=== PATIENT | male | born 1950 | race Caucasian/White ===

== ENCOUNTER 2023-11-29 01:06 | Day surgery (SDC) | payer MEDICARE, SELFPAY ==
[2023-11-19 10:08] VITALS: BMI 32.2
[2023-11-29 08:46] VITALS: BP 131/81; PULSE 73; RESP 20; TEMP 36.4; O2SAT 98; BMI 32.3
[2023-11-29] MEDS: LACTATED RINGERS 1,000 ML 150 ML IV CONT (08:50)
--- NOTE | 2023-11-29 09:22 | WPDANESEPPF ---
Anes - Initial Pre Proc Eval Procedure: Operation Date: 11/29/23 09:30 Proposed Procedures p Screening Colonoscopy - Rudy Love MD Date/Time: 11/29/23 09:22 Surgeon: Rudy Love MD Pre Op Diagnosis: neoplasm screening Patient Data Age: 73 Gender: M Height: 1.88 m Weight: 114.1 kg Last Vital Signs Temp 36.4 C 11/29/23 08:46 Pulse 73 11/29/23 08:46 Resp 20 11/29/23 08:46 BP 131/81 11/29/23 08:46 Pulse Ox 98 11/29/23 08:46 O2 Del Method Room Air 11/29/23 08:46 Allergies Allergy/AdvReac Type Severity Reaction Status Date / Time codeine Allergy Unknown Gastrointestinal Verified 11/29/23 08:45 Upset Penicillins Allergy Unknown Unknown Verified 11/29/23 08:45 Home Medications Medication Instructions Recorded Confirmed Type omega 4-gug-mkc-fish oil 60 mg-90 1 cap PO DAILY 08/25/20 11/29/23 History mg-500 mg capsule (Fish Oil) lisinopril 10 mg tablet 10 mg PO DAILY #90 tabs 05/09/23 11/29/23 Rx simvastatin 40 mg tablet 40 mg PO DAILY #90 tabs 05/09/23 11/29/23 Rx Patient hx anesthesia problems: none Family hx anesthesia problems: none Results Review: All pre-operative results and documents have been reviewed as part of the pre-operative evaluation. REPLACED BY [facility] Past Medical History Medical History Benign essential hypertension Chronic pain of left knee Colon cancer screening History of prostate cancer Other and unspecified hyperlipidemia Rosacea Surgical History Surgical History H/O prostatectomy H/O repair of rotator cuff Family History Family History Mother Family history of diabetes mellitus in first degree relative Grandparent Diabetes mellitus Father Family history of heart disease in male family member before age 55 Social History Social History Smoking packs per day: 1 Smoking cigarettes per day: 20.0 Years smoked: 5 Smoking pack-years: 5.00 Smoking status: Former smoker Tobacco type: cigarettes Second hand tobacco smoke exposure: Yes Smoking end date: 02/05/74 Alcohol intake: current Drinks per week: 7 Alcohol use details: occasionally Substance use: never Substance use type: does not use Living arrangements: with family Spiritual care concerns: No Anes - Eval Final PreProcedure Day of Procedure 11/29/23 09:22 Patient weight: obese Heart: regular rate and rhythm Lungs: clear to auscultation Airway: Mallampati scale class II Neurological: alert and oriented Last oral intake: >/= 8 hours ASA classification: III Emergent: no Anesthetic plan: proceed Anesthesia type and monitoring: general GIVS and standard monitoring Results Review: All pre-operative results and documents have been reviewed as part of the pre-operative evaluation. Informed Consent: The patient's anesthetic plan and its attendant risks and benefits were discussed with the patient/family/POA. Questions were solicited and answers provided to the satisfaction of the patient/family/POA.
--- NOTE | 2023-11-29 10:21 | PM.IMHP ---
H&P: HPI History of Present Illness Date/Time: 11/29/23 10:21 Chief Complaint: Screening colonoscopy Narrative: This is the patient's first colonoscopy. There are no GI symptoms and there is no family history of colorectal cancer. [facility] Past Medical History Medical History Benign essential hypertension Chronic pain of left knee Colon cancer screening History of prostate cancer Other and unspecified hyperlipidemia Rosacea Surgical History Surgical History H/O prostatectomy H/O repair of rotator cuff Family History Family History Mother Family history of diabetes mellitus in first degree relative Grandparent Diabetes mellitus Father Family history of heart disease in male family member before age 55 Social History Social History Smoking packs per day: 1 Smoking cigarettes per day: 20.0 Years smoked: 5 Smoking pack-years: 5.00 Smoking status: Former smoker Tobacco type: cigarettes Second hand tobacco smoke exposure: Yes Smoking end date: 02/05/74 Alcohol intake: current Drinks per week: 7 Alcohol use details: occasionally Substance use: never Substance use type: does not use Living arrangements: with family Spiritual care concerns: No Meds Home Medications and Allergies Home Medications Medication Instructions Recorded Confirmed Type omega 5-cgf-stu-fish oil 60 mg-90 1 cap PO DAILY 08/25/20 11/29/23 History mg-500 mg capsule (Fish Oil) lisinopril 10 mg tablet 10 mg PO DAILY #90 tabs 05/09/23 11/29/23 Rx simvastatin 40 mg tablet 40 mg PO DAILY #90 tabs 05/09/23 11/29/23 Rx Allergies Allergy/AdvReac Type Severity Reaction Status Date / Time codeine Allergy Unknown Gastrointestinal Verified 11/29/23 08:45 Upset Penicillins Allergy Unknown Unknown Verified 11/29/23 08:45 Vital Signs Vital Signs - 24 hr 11/29/23 08:46 Temperature 97.6 F Pulse Rate 73 Respiratory Rate 20 Blood Pressure 131/81 Pulse Oximetry 98 Oxygen Delivery Room Air Assessment and Plan Assessment and plan (1) Encounter for screening colonoscopy: Code(s): Z12.11 - Encounter for screening for malignant neoplasm of colon Status: Acute Assessment and Plan: The patient is deemed a good candidate for the procedure. Consent signed. Will proceed.
[2023-11-29 10:46] VITALS: BP 111/65; PULSE 56; RESP 13; O2SAT 96
[2023-11-29 10:56] VITALS: BP 108/68; PULSE 54; RESP 12; O2SAT 97
[2023-11-29 11:06] VITALS: BP 128/80; PULSE 68; RESP 20; O2SAT 97
== END 2023-11-29 11:19 | disposition home or self-care (01) ==
PROVIDERS: PCP Nurse Practitioner; Visit Provider Internal Medicine Gastroenterology
PROC: 0DJD8ZZ Inspection of Lower Intestinal Tract, Via Natural or Artificial Opening Endoscopic (ICD-10-PCS; CPT 45378; principal; 2023-11-29 09:30)
DX: Z12.11 Encounter for screening for malignant neoplasm of colon (principal); K57.30 Diverticulosis of large intestine without perforation or abscess without bleeding; E78.49 Other hyperlipidemia; I10 Essential (primary) hypertension; Z85.46 Personal history of malignant neoplasm of prostate; Z87.891 Personal history of nicotine dependence; E66.9 Obesity, unspecified; Z68.32 Body mass index [BMI] 32.0-32.9, adult
CPT/HCPCS: G0121; J1596; J2003; J2704; J7120

== ENCOUNTER 2024-07-10 07:39 | Outpatient (CLI) | payer MEDICARE, SELFPAY ==
--- NOTE | ~2024-07-10 | PE_ITS ---
EXAMINATION: PET_PETPSMAST_PT DATE: 07/10/2024 09:54 INDICATION: Prostate cancer TECHNIQUE: 4.894 mCi of Illucix Ga-68(73-Gh-zdnktdkklx) was administered i.v. Low dose computed moises graphy (CT) images were acquired from the base of the brain to the base of the brain to the proximal thighs for attenuation correction and anatomic localization. Positron emission tomography (PET) image s were acquired in the same distribution beginning 81 minutes after injection. Images including fused PET/CT images were reconstructed in axial, coronal, and sagittal planes. Automated exposure control technique was employed. The dose-length product was 1317.13mGy-cm. COMPARISON: CT abdomen pelvis dated 09/25/2013 FINDINGS: Head/neck: Typical pattern of symmetric physiologic increased activity in the lacrimal, parotid and submandibula r glands as well as along the mucosa of the nasal and oral cavities, pharynx and hypopharynx. No path ologically enlarged cervical lymphadenopathy or suspicious foci of increased uptake in the visualized head or neck. Chest: Mild emphysema. Calcified nodule at the basilar left lower lobe consistent with old granulomatous dis ease. Mild bibasilar atelectasis. Heart size normal. Atherosclerotic coronary artery calcific lesion. Thoracic aorta is normal in caliber. No pathologically enlarged or PSMA avid thoracic lymphadenopath y. Abdomen/pelvis/proximal thighs: Physiologic renal accumulation and excretion of activity in the kidneys, bladder and along portions o f ureters. Status post prostatectomy with no evident nodular soft tissue density at the prostatectomy bed or abnormal pacemaker activity to suggest locally recurrent disease. Assessment of activity at t he prostatectomy bed is however significantly limited by the large amount of contents excreted activi ty within the bladder. Photopenic defect associated with a 7.3 x 3.5 cm exophytic cyst at the postero lateral right kidney which is increased in size since the prior study. There is a second indeterminat e 12 mm exophytic lesion at the lateral right kidney which demonstrates higher soft tissue density wh ich is new since the prior study. Normal degree and slightly heterogenous pattern of increased uptake throughout the liver and spleen without radiologic correlate or dominant PSMA avid lesion. Calcified gallstone at the neck of the normal-appearing nondilated gallbladder. The pancreas and bilateral adr enal glands are normal. Moderate uptake scattered throughout the bowels with typical duodenal and pro ximal jejunal predominance and without radiologic correlate, also likely physiologic. Moderate divert iculosis with descending and sigmoid colon predominance without surrounding from pursuing to suggest diverticulitis. Small fat-containing left inguinal hernia. No other abnormal foci of increased uptake or pathologically enlarged lymphadenopathy in the abdomen, pelvis or proximal thighs. Musculoskeletal: Severe cervical and lumbar spondylosis. Chronic sclerotic bone island at L3 which is unchanged since 2014 and without No no other suspicious lytic, blastic or abnormally PSMA avid bone lesions. IMPRESSION: 1. No abnormal PSMA avid lesions to suggest locally recurrent or metastatic disease. 2. Indeterminate 12 mm exophytic soft tissue density right renal lesion which is new since the prior study. This statistically most likely to represent a proteinaceous/hemorrhagic cyst although solid re nal cell carcinoma could not be excluded and would recommend further evaluation with pre and postcont rast CT. 3. Cholelithiasis. 4. Small fat-containing left inguinal hernia. Reviewed, dictated and finalized at location A. IMPRESSION: 1. No abnormal PSMA avid lesions to suggest locally recurrent or metastatic dis ease. 2. Indeterminate 12 mm exophytic soft tissue density right renal lesion which i s new since the prior study. This statistically most likely to represent a prot einaceous/hemorrhagic cyst although solid renal cell carcinoma could not be exc luded and would recommend further evaluation with pre and postcontrast CT. 3. Cholelithiasis. 4. Small fat-containing left inguinal hernia.
--- OUTSIDE RECORDS SUMMARY | 2024-07-10 07:41 | XMS_ITS | Clinical Summary ---
Author Organization [facility] Address [address] [place] [address] Care Team Providers Care Insurance Verification Representative Name Role Phone Unavailable Primary Care Provider Unavailabl e Source Comments [facility],non-owned Affiliates and Associated Physician Practices is amultiple site organization consisting of ambulatory clinics and hospital sitesin [place], [place], [place] and [place]. This disclosure is being madepursuant to the Care Everywhere program and may not contain all information available regarding this patient. Last updated 17.[facility] iLike Allergies Active Allergy Reactions Criticality Noted Date Comments Penicillins Unknown 10/30/2018 Immunizations Immunization Administration Dates Next Due INFLUENZA VACCINE, HIGH-DOSE , QUADR. (FLUZONE HIGH-DOSE QUADRIVALENT; 65Y+), 0.7 ML (HD-IIV4) 10/31/2019,10/30/2018 Social History Tobacco Use Types Packs/Day Years Used Date Smoking Tobacco: Never Assessed Sex and Gender Information Value Date Recorded Sex Assigned at Not on file Legal Sex Male 2:48 PM CDT Gender Identity Not on file Sexual Orientation Not on file Plan of Treatment Health Maintenance Due Date Last Done Comments COLOGUARD (AGES 45-75) - COL ON CA SCREENING 1949 COLON MONITORING 1949 COLONOSCOPY - COLON CA SCREENING 1949 CT COLONOGRAPHY - COLON CA SCREENING 1949 Colorectal Cancer Screening 1949 FIT - COLON CA SCREENING 1949 FLEX SIG - COLON CA SCREENING 1949 LIPID TESTING 1949 HEPATITIS C SCREENING 07/13/1967 DTAP/TDAP/TD VACCINES (1 - Tdap) 1968 PNEUMOCOCCAL VACCINE 50+ (1 of 1 - PCV) 07/18/1999 ZOSTER VACCINE (1 of 2) 07/18/1999 COVID-19 VACCINE (2023-2 5 season) 2023 DEPRESSION SCREENING 02/06/2024 Respiratory Syncytial Virus (RSV) Vaccine Pt: or over 60 yrs (1 - 1-dose 75+ series) 2024 INFLUENZA VACCINE (Season Ended) 2024 10/31/2019, 10/30/2018 HEPATITIS B VACCINE Aged Out No longe r eligible based on patient's age to complete this topic HIB VACCINE Aged Out No longer eligi ble based on patient's age to complete this topic HPV VACCINE Aged Out No longer eligi ble based on patient's age to complete this topic MENINGOCOCCAL (Group B) VACCINE SHARED DECISION-MAKING Aged Out No longer eligible based on patient's age to complete this topic MENINGOCOCCAL GROUPS A/C/Y/W VACCINE Aged Out No longer eligible b ased on patient's age to complete this topic Insurance MEDICARE [employer]
--- OUTSIDE RECORDS SUMMARY | 2024-07-10 07:42 | XMS_ITS | Data Portability ---
Author Organization [place] [facility] Main Office Address [address] [place] [address] Care Team Providers Care Institution Librarian Name Role Phone LEO JOSELITO Primary Care Provider LEO JOSELITO Referring Provider [phone] Assessment Encounter Date Assessment Date Assessment LastModified by Organization Details LastModified Time 04/28/2022 04/28/2022 HPI: 71-year-old male came in today for cortisone injection into his right shoulder. I saw him last year in September. He has complete superior migration of the humeral head on the acromion. He was doing well up until he was helping his son-in-law remodel home. He is doing lot of overhead activities and the shoulders bother him quite a bit. He will utilize lrnb-llr-zolxxh r ibuprofen but this is not helping right now. He came in today wanting and cortisone injection. He has not had 1 in the past. Physical exam: 71-year-old male very alert. He has no effusion in the right shoulder. He has active elevation to 145 external rotation 80 internal rotation is to L1. He has moderate weakness with external rotation as well as abduction. ChloraPrep was used on skin 20 mg Kenalog and 3 cc of 0.5% ropivacaine was injected into the right subacromial space. Risk infection discussed. 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 I discussed with him that he can repeat cortisone injection as often as every 3 months. Talked about utilizing the ibuprofen on a more regular basis especially when he is being active with the shoulder and he is going to experiment with that a bit. I will see him back as needed. 20 minutes was spent to treatment the patient with more than half of this [id number] conversation hannah Not available 04/28/2022 11:05:02 Plan of Treatment Reminders Order Date Submit Date Provider Last Modified By Organization Details Last Modified Time Details Appointments None recorded. Lab None recorded. Referral None recorded. Procedures injection/a spiration joint/bursa (PROC) - in office procedure, administere d by provider 2022 023 In-Office Order, Internal Use Only DO Not Attach Compendium DO Not Attach Compendium, Do Not Delete/merge, [id number] 3 09:58:02 Surgeries None recorded. Imaging None recorded. Medication Orders Kenalog 10 mg/mL suspension for injection 2022 [address] [id number], [address], [place], [place], [phone], 3 13:34:52 ropivacaine (PF) 5 mg/mL (0.5 %) injection solution 2022 023 [id number], [address], [place], [place], [phone], 3 13:34:52 Patient TargetsNo targets recorded. Patient InstructionsNo instructions recorded. Reason for Referral None Reported. Results Created Date Observation Date Name Description Value Unit Range Abnormal Flag Note LastModifiedBy Organization Detail LastModifiedTime 09/27/19 22 XR, shoul jennifer No observ ation record ed. [id number] [place] [address], [place], [address], 04/05/2022 13:33:27 Result Notes None recorded. Problems Name Problem SNOMED Code Status Onset Date Resolution Date Notes Provider Name and Address Organization Details Recorded Time Pain of right shoulder joint 8880303902616 9100 Active 2021 Not Available [facility] 3 13:31:00 Osteoarthr itis 133102773 Active Not Available [facility] 3 13:31:00 Pain in limb 25381914 Active Not Available [facility] 3 13:31:00 Pain of left shoulder joint 4171571161145 9109 Active 2022 GABI Aguilar, [place] [facility] 09:56:04 Problem Notes None recorded. Procedures Surgical History Date Name Laterality Status Provider Name and Address Organization Details Recorded Time procedure on appendix completed Not Available [facility] 04/05/2022 13:30:05 prostatectomy completed Not Available [facility] 04/05/2022 13:30:05 extraction of cataract completed Not Available [facility] 04/05/2022 13:30:05 Imaging Results None recorded. Procedure Notes None recorded. Medical Equipment None Reported. Allergies Allergen ID Allergen Name Allergen Category Reaction Reaction Severity Criticality Documentation Date Start Date Code Code System Note Provider Name and Address Organization Details Recorded Time 66013 Product containin g penicilli n (product) medicatio n Not available Not available Not available 04/05/2022 27816 8001 SNOMED Not Available [facility] 3 13:33:25 79246 codeine medicatio n Not available Not available Not available 04/05/2022 2670 RxNorm Not Available [facility] 3 13:33:25 Medications Name Sig Start Date Stop Date Status Note LastModified by Organization Details LastModified Time simvastatin 80 mg tablet 09/21 completed Not Available Not Available Not Available simvastatin 40 mg tablet TAKE 1 TABLET BY MOUTH DAILY active Not Available Not Available No t Available Kenalog 10 mg/mL suspension for injection in office 2022 active ND: 0003- 0494- 20 Not Available Not Available Not Available lisinopril 10 mg tablet TAKE 1 TABLET BY MOUTH DAILY active Not Available Not Available No t Available metronidazo le 0.75 % topical gel APPLY TOPICALLY TO FACE IN THE MORNING AND IN THE EVENING active Not Available Not Available No t Available tadalafil 20 mg tablet 09/21 completed Not Available Not Available Not Available diclofenac 1 % topical gel 09/21 completed Not Available Not Available Not Available ropivacaine (PF) 5 mg/mL (0.5 %) injection solution in office 2022 active [facility] 09523 -064- 01 Not Available Not Available Not Available Fluzone High-Dose 2461-2245 (PF) 180 mcg/0.5 mL intramuscul ar syringe 09/21 completed Not Available Not Available Not Available Vitals Date Recorded Body height Provider Name an d Address Organization Details Last Updated DateTime 04/28/2022 180.34 cm GABI Aguilar [facility] 04/28/2022 09:54:58 Date Recorded Body mass index (BMI) Body height Body weight Provider Name and Address Organization Details Last Updated DateTime 09/26/2021 35.4 kg/m2 180.34 cm 659976.46 g Not Available [facility] 04/05/2022 13:30:40 Social History None recorded. Functional Status Question Answer Note LastModified by Organizat ion Details LastModified Time What is your level of alcohol consumption? Moderate [id number] Information not available 04/05/2022 Mental Status None recorded. Family History Relationship Description Onset Age of this Age Resolved Age Notes LastModified by Organization Details LastModified Time Mother Diabetes mellitus [id number] Not available 04/05/2022 13:30:06 Medical History Condition Response BLINDNESS N KIDNEY STONES N MRSA N CARPAL TUNNEL SYNDROME N LUNG DISEASE/DISORDER N HISTORY OF DRUG ABUSE N RADIATION / CHEMOTHERAPY N COPD N SPORTS INJURY N ANKLE PAIN N BLOOD DISEASES N SCHIZOPHRENIA N SHINGLES N SHOULDER PAIN N DEPRESSION (INCLUDING POST ) N BOWEL PROBLEMS N STROKE/TIA N ULCERS N KNEE PAIN N BENIGN PROSTATIC HYPERPLASIA N OBESITY N GERD/NAUSEA N ANEURYSM N URINARY/BLADDER/KIDNEY PROBLEMS N CORONARY ARTERY DISEASE (CAD) N ADDICTION CONCERNS N USE OF BLOOD THINNERS N SKIN PROBLEMS N EMPHYSEMA N MUSCLE,JOINT OR BONE PROBLEMS N DVT N STOMACH ULCERS N BLOOD CLOTS N USE OF NSAIDS N CONCUSSION OR SPINAL TRAUMA N NEUROPATHY N AIDS/HIV N FRACTURES N HYPERTENSION N ELBOW PAIN N TOURETTE'S N Metal allergy N ANXIETY DISORDER N BLOOD TRANSFUSION N ANEMIA/BLOOD DISORDER N BIPOLAR DISORDER N BRONCHITIS N OSTEOARTHRITIS N TUBERCULOSIS N FOOT PROBLEM N HEART VALVE DISORDERS N SOFT TISSUE INJURY N ALLERGIES/HAYFEVER N INFECTIOUS DISEASE N HEART ARRHYTHMIA N INSOMNIA N RHEUMATOID ARTHRITIS N HIGH CHOLESTEROL / HYPERLIPIDEMIA N EDEMA N CHRONIC PAIN SYNDROME N CAROTID BLOCKAGE N BACK / NECK PROBLEMS N HAVE YOU BEEN HOSPITALIZED OR SEEN IN [facility] IN THE PAST YEAR ? N BURSITIS N HERNIATED DISC N DIALYSIS N FIBROMYALGIA N OSTEOPOROSIS N ARTHRITIS N NO SIGNIFICANT PAST MEDICAL HISTORY N PERIPHERAL NEUROPATHY N DIABETES, TYPE N HEARTBURN / REFLUX N HEPATITIS / LIVER DISEASE N GOUT N SLEEP DISORDER N ALZHEIMER'S DISEASE N HERPES N SEIZURES/EPILEPSY N HEADACHES/MIGRAINES N VASCULAR DISEASE N HIP PAIN N Blood Disorder N DIZZINESS N HEAD TRAUMA OR INJURY N HEART DISEASE/HEART PROBLEMS N MULTIPLE SCLEROSIS N CARDIAC ARRHYTHMIA N CANCER: SPECIFY N ANESTHESIA COMPLICATIONS N ATRIAL FIBRILLATION N AUTOIMMUNE DISEASE N Past Encounters Encounter ID Performer Location Encounter Start Date Encounter Closed Date Diagnosis/Indication Diagnosis SNOMED-CT Code Diagnosis ICD10 Code Diagnosis Note [id number] Jose Shoemaker MD [facility] [place] [address] [place] [address] 09/26/2021 00:00:00 09/26/2021 16:26:41 [id number] Jose Shoemaker MD [facility] [place] [address] [place] [address] 04/28/2022 09:51:19 04/28/2022 11:16:58 Pain of left shoulder joint [id number] 8715554 M25.512 Health Concerns Section Related Observation LastModified by Organization Detai ls LastModified Time None Recorded Concern Status LastModified by Organization Details LastModified Time None Recorded Advance Directives Directive None Recorded Payers Encounter Date Sequence Insurance Name Policy Number Policy Tomas Covered Member ID Tomas Member ID Guarantor Name 04/28/2022 1 [employer] (MEDICARE REPLACEMENT /ADVANTAGE - PPO) [id number] Benjamín Ramos [id number] Benjamín Ramos
== END 2024-07-10 07:40 | disposition home or self-care (01) ==
PROVIDERS: PCP Nurse Practitioner; Visit Provider Urology
DX: C61 Malignant neoplasm of prostate (principal); K80.20 Calculus of gallbladder without cholecystitis without obstruction; K40.90 Unilateral inguinal hernia, without obstruction or gangrene, not specified as recurrent
CPT/HCPCS: 78815; A9596

== ENCOUNTER 2024-08-14 08:21 | Outpatient (CLI) | payer MEDICARE, SELFPAY ==
--- NOTE | ~2024-08-14 | CT_ITS ---
CT of the Abdomen: Indication: Neoplasm of uncertain behavior right kidney Technique: 2.5 mm axial scans were obtained through the abdomen prior to and following intravenous a dministration of 100 cc of Omnipaque 350. Dose reduction technique was used on this scan by utilizing automated exposure control and iterative reconstruction technique. The dose-length product (DLP) was 1439.00 mGy-cm. Findings: Scans through the lung bases are unremarkable. The liver, spleen, pancreas, and adrenal glands are within normal limits. Gallstones are present. Raheel ateral parapelvic renal cysts are present. Additional exophytic cortical right renal cysts present. N o solid/enhancing renal lesion seen. There are atherosclerotic calcifications of the aorta. No lymph adenopathy. Visualized bowel is unremarkable. No ascites. Impression: Bilateral renal cysts, as above. No suspicious/enhancing renal mass identified. Reviewed, dictated and finalized at [facility]. Impression: Bilateral renal cysts, as above. No suspicious/enhancing renal mass identified.
--- OUTSIDE RECORDS SUMMARY | 2024-08-14 08:25 | XMS_ITS | Clinical Summary ---
Author Organization [facility] Address [facility] [place] [address] Care Team Providers Care Cartographic Aide Name Role Phone Leo Cosme Anita GUADARRAMA Primary Care Provider [phone] Allergies Active Allergy Reactions Criticality Noted Date Comments Penicillins Unknown 10/30/2018 Medications lisinopril (PRINIVIL) 10 MG tablet Take 1 tablet (10 mg total) by mouth daily. Active simvastatin (ZOCOR) 80 MG tablet Take 0.5 tablets (40 mg total) by mouth nightly at bedtime. Active Social History Tobacco Use Types Packs/Day Years Used Date Smoking Tobacco: Former Cigarettes Smokeless Tobacco: Never Tobacco Cessation:Counseling Given: Not Answered Alcohol Use Standard Drinks/Week Comments Yes 0 (1 standard drink = 0.6 oz pur e alcohol) one beer daily. Sex and Gender Information Value Date Recorded Sex Assigned at Male 04/24/2024 10:00 AM CDT Legal Sex Male 7:12 PM CDT Gender Identity Not on file Sexual Orientation Not on file Last Filed Vital Signs Vital Sign Reading Time Taken Comments Blood Pressure 130/71 04/28/2024 8:22 AM CDT Pulse 62 04/28/2024 8:22 AM CDT Temperature 36.5 C (97.7 F) 04/28/2024 6:55 AM CDT Respiratory Rate 16 04/28/2024 6:55 AM CDT Oxygen Saturation 98% 04/28/2024 6:55 AM CDT Inhaled Oxygen Concentration - - Weight 113.4 kg (250 lb) 04/28/2024 6:55 AM CDT Height 185.4 cm (6' 1) 04/28/2024 6:55 AM CDT Body Mass Index 32.98 04/28/2024 6:55 AM CDT Plan of Treatment Health Maintenance Due Date Last Done Comments Colorectal Cancer Screening Colonoscopy (10 Years) 1950 Hepatitis C 07/18/1967 DTaP, Tdap and Td Vaccines ( 1 - Tdap) 1968 Pneumococcal Vaccine: 50+ Ye ars (1 of 1 - PCV) 07/18/1999 Zoster Vaccines (1 of 2) 07/18/1999 AAA SCREENING 2014 Annual Medicare Wellness Visit 2014 COVID-19 Vaccine (1 - 2023-2 5 season) 2023 RSV Immunization or 60+ Years (1 - 1-dose 75+ series) 2024 Meningococcal B Vaccine Aged Out No l onger eligible based on patient's age to complete this topic Meningococcal Vaccine Aged Out No anibal annamaria eligible based on patient's age to complete this topic RSV Immunizations Under 20 Months Aged Out No longer eligible based on patient's age to complete this topic Medical Devices Implanted Type Area Physician Non Invasive Cardiologist Device Identifier Shelf Expiration Date Model / Serial / Lot Tecnis 1-Piece Iol With Tecnis Simplicity Delivery System Implanted:Qty: 1 on 04/28/2024 by Mariano Shea MD at [facility] Left: Eye [employer] [id number] 03/26/2026 DCB00 / [id number] / Insurance [employer] Care Teams Cartographic Aide Relationship Specialty Start Date End Date Cosme Jewell NP [address] [facility] [address] [place] [address] PCP - General NURSE PRACTITIONER 04/24/24
--- OUTSIDE RECORDS SUMMARY | 2024-08-14 08:25 | XMS_ITS | Data Portability ---
Author Organization [place] - [facility], Main Office Address [address] [place] [address] Care Team Providers Care Police Captain Senior Name Role Phone JOSELITO BAILEY Primary Care Provider JOSELITO BAILEY Referring Provider [phone] Assessment Encounter Date Assessment Date Assessment LastModified [...] him quite a bit. He will utilize kmsx-wtv-auckna r ibuprofen but this is not helping [...] patient with more than half of this [id number]-[id number] conversation hannah Not available 04/28/2022 11:05:02 Plan of Treatment Reminders Order Date Submit Date Provider Last Modified By Organization Details Last Modified Time Details Appointments None recorded. Lab None recorded. Referral None recorded. Procedures injection/a spiration joint/bursa (PROC) - in office procedure, administere d by provider 2022 023 [email or web address] In-Office Order, Internal Use Only DO Not Attach Compendium DO Not Attach Compendium, Do Not Delete/merge, [id number] 3 09:58:02 Surgeries None recorded. Imaging None recorded. Medication Orders Kenalog 10 mg/mL suspension for injection 2022 [address] [place] [id number] [id number], [address] [facility], [place], [place], [id number], 3 13:34:52 ropivacaine (PF) 5 mg/mL (0.5 %) injection solution 2022 023 [place] [address] [id number], [address] [place], [place], [id number], 3 13:34:52 Patient TargetsNo targets recorded. Patient InstructionsNo instructions recorded. Reason for Referral None Reported. Results Created Date Observation Date Name Description Value Unit Range Abnormal Flag Note LastModifiedBy Organization Detail LastModifiedTime 09/27/19 22 XR, shoul jennifer No observ ation record ed. [id number] [place] [address], [place], [address], 04/05/2022 13:33:27 Result Notes None recorded. Problems Name Problem SNOMED Code Status Onset Date Resolution Date Notes Provider Name and Address Organization Details Recorded Time Pain of right shoulder joint 0495975559529 9100 Active 2021 Not Available [facility] 3 13:31:00 Osteoarthr itis 587987035 Active Not Available [facility] 3 13:31:00 Pain in limb 67299190 Active Not Available [facility] 3 13:31:00 Pain of left shoulder joint 1773551125149 9109 Active 2022 GABI Aguilar, [place] [facility] 3 09:56:04 Problem Notes None recorded. Procedures Surgical History Date Name Laterality Status Provider Name and Address Organization Details Recorded Time procedure on appendix completed Not Available [facility] 04/05/2022 13:30:05 prostatectomy completed Not Available [facility] 04/05/2022 13:30:05 extraction of cataract completed Not Available [facility] 04/05/2022 13:30:05 Imaging Results None recorded. Procedure Notes None recorded. Medical Equipment None Reported. Allergies Allergen ID Allergen Name Allergen Category Reaction Reaction Severity Criticality Documentation Date Start Date Code Code System Note Provider Name and Address Organization Details Recorded Time 14121 Product containin g penicilli n (product) medicatio n Not available Not available Not available 04/05/2022 15101 8001 SNOMED Not Available [facility] 3 13:33:25 63503 codeine medicatio n Not available Not available Not available 04/05/2022 2670 RxNorm Not Available [facility] 3 13:33:25 Medications Name Sig Start Date [...] %) injection solution in office 2022 active [facility]NOTE 2] [phone] Not Available Not Available Not Available Fluzone High-Dose 2207-8037 (PF) 180 mcg/0.5 mL intramuscul ar syringe 09/21 completed Not Available Not Available Not Available Vitals Date Recorded Body height Provider Name an d Address Organization Details Last Updated DateTime 04/28/2022 180.34 cm GABI Aguilar [place] [facility] [place] [employer] [facility] 04/28/2022 09:54:58 Date Recorded Body mass index (BMI) Body height Body weight Provider Name and Address Organization Details Last Updated DateTime 09/26/2021 35.4 kg/m2 180.34 cm 636832.46 g Not Available [facility] 04/05/2022 13:30:40 Social History None recorded. Functional Status Question Answer Note LastModified by Organizat ion Details LastModified Time What is your level of alcohol consumption? Moderate [id number] Information not available 04/05/2022 Mental Status None recorded. Family History Relationship Description Onset Age of this Age Resolved Age Notes LastModified by Organization Details LastModified Time Mother Diabetes mellitus [id number] Not available 04/05/2022 13:30:06 Medical History Condition Response BLINDNESS N KIDNEY STONES N MRSA N CARPAL TUNNEL SYNDROME N LUNG DISEASE/DISORDER N HISTORY OF DRUG ABUSE N COPD N RADIATION / CHEMOTHERAPY N SPORTS INJURY N ANKLE PAIN N BLOOD DISEASES N SCHIZOPHRENIA N SHINGLES N BOWEL PROBLEMS N SHOULDER PAIN N DEPRESSION (INCLUDING POST ) N STROKE/TIA N ULCERS N KNEE PAIN [...] N NEUROPATHY N AIDS/HIV N FRACTURES N ELBOW PAIN N HYPERTENSION N TOURETTE'S N ANXIETY DISORDER N Metal allergy N BLOOD TRANSFUSION N ANEMIA/BLOOD DISORDER N BIPOLAR DISORDER N BRONCHITIS N OSTEOARTHRITIS N TUBERCULOSIS N FOOT PROBLEM N HEART VALVE DISORDERS N ALLERGIES/HAYFEVER N SOFT TISSUE INJURY N INFECTIOUS DISEASE N HEART ARRHYTHMIA N INSOMNIA N RHEUMATOID ARTHRITIS N HIGH CHOLESTEROL / HYPERLIPIDEMIA N EDEMA N CHRONIC PAIN SYNDROME N CAROTID BLOCKAGE N BACK / NECK PROBLEMS N HAVE YOU BEEN HOSPITALIZED OR SEEN IN THE MEDICAL CENTER IN THE PAST YEAR ? N BURSITIS [...] SNOMED-CT Code Diagnosis ICD10 Code Diagnosis Note [id number] Jose Shoemaker MD [facility] [place] [address] [facility] [address] [place] [address] 09/26/2021 00:00:00 09/26/2021 16:26:41 [id number] Jose Shoemaker MD [facility] [place] [address] [place] [address] 04/28/2022 09:51:19 04/28/2022 11:16:58 Pain of left shoulder joint [id number] M25.512 Health Concerns Section Related Observation LastModified by Organization Detai ls LastModified Time None Recorded Concern Status LastModified by Organization Details LastModified Time None Recorded Advance Directives Directive None Recorded Payers Insurance Date Sequence Insurance Name Policy Number Policy Tomas Covered Member ID Tomas Member ID Guarantor Name 04/28/2022 1 [facility] (MEDICARE REPLACEMENT/ ADVANTAGE - PPO) Benjamín Ramos [id number] Benjamín Ramos 04/28/2022 1 [facility] (MEDICARE REPLACEMENT/ ADVANTAGE - PPO) [id number] Benjamín Ramos [id number] Benjamín Ramos
--- OUTSIDE RECORDS SUMMARY | 2024-08-14 08:25 | XMS_ITS | Clinical Summary ---
Author Organization [facility] Address [address] [place] [address] Care Team Providers Care Photo Checker Name Role Phone Unavailable Primary Care Provider Unavailabl e Source Comments [facility],non-owned Affiliates and Associated Physician Practices is amultiple site organization consisting of ambulatory clinics and hospital sitesin [place], [place], [place] and [place]. This disclosure is being madepursuant to the Care Everywhere program and may not contain all information available regarding this patient. Last updated 17.[facility] [employer] Allergies Active Allergy Reactions Criticality Noted Date [...] - 1-dose 75+ series) 2024 INFLUENZA VACCINE (#1) 2024 0, 10/30/2018 HEPATITIS B VACCINE Aged Out No [...] age to complete this topic [facility]
[2024-08-14 08:44] LABS: Estimated Glomerular Filt Rate > 60
== END 2024-08-14 08:22 | disposition home or self-care (01) ==
PROVIDERS: PCP Nurse Practitioner; Visit Provider Urology
DX: D41.01 Neoplasm of uncertain behavior of right kidney (principal); N28.1 Cyst of kidney, acquired
CPT/HCPCS: 74170; Q9967